=== PATIENT | female | born 1975 | race Two or more races ===

== ENCOUNTER 2017-11-05 08:23 | Inpatient (IN) | payer OTHER ==
[~2017-11-05] VITALS: Ht 172.7 cm; Wt 82.0 kg
[2017-11-05 08:51] VITALS: BP 117/67
[2017-11-05 09:56] LABS: SOURCE SWAB
[2017-11-05 10:09] LABS: BASOPHIL (%) 0.2 % (0-1); EOSINOPHIL (%) 0.2 % (0-5); HEMATOCRIT 35.5 % (36.0-46.0); HEMOGLOBIN 12.7 G/DL (11.9-15.5); IMMATURE GRANULOCYTE (%) 0.7 % (0.0-0.7); LYMPHOCYTE (%) 10.7 % (15-42); LYMPHOCYTE COUNT 1.9 K/uL (1.0-2.8); MCH 33.8 PG (29.0-34.0); MCHC 35.8 G/DL (30.0-36.0); MCV 94.4 FL (83-99); MONOCYTE (%) 4.1 % (3-12); MONOCYTE COUNT 0.7 K/uL (0-0.8); NEUTROPHIL (%) 84.1 % (45-76); NEUTROPHIL COUNT 14.7 K/uL (1.8-6.4); PLATELET COUNT 186 K/uL (156-360); RBC DIS.WIDTH-CV 13.3 % (11.8-14.6); RBC DIS.WIDTH-SD 45.8 % (39-53); RED BLOOD COUNT 3.76 M/uL (3.80-5.20); WHITE BLOOD COUNT 17.5 K/uL (4.1-10.2)
[2017-11-05] MEDS ORDERED: IBUPROFEN800 MG PO (13:05)
[2017-11-05] MEDS ORDERED: ENDOCET 5-3251 EACH PO (13:05)
[2017-11-05 14:15] VITALS: BP 135/72
[2017-11-05 20:11] VITALS: BP 117/69
[2017-11-05 23:33] VITALS: BP 93/53
[2017-11-06 03:13] VITALS: BP 111/65
[2017-11-06 07:08] LABS: BASOPHIL (%) 0.2 % (0-1); EOSINOPHIL (%) 0.6 % (0-5); EOSINOPHIL COUNT 0.1 K/uL (0-0.3); HEMATOCRIT 35.1 % (36.0-46.0); IMMATURE GRANULOCYTE (%) 0.9 % (0.0-0.7); LYMPHOCYTE (%) 13.4 % (15-42); LYMPHOCYTE COUNT 2.2 K/uL (1.0-2.8); MCH 33.1 PG (29.0-34.0); MCHC 34.2 G/DL (30.0-36.0); MCV 96.7 FL (83-99); MONOCYTE (%) 4.7 % (3-12); MONOCYTE COUNT 0.8 K/uL (0-0.8); NEUTROPHIL (%) 80.2 % (45-76); NEUTROPHIL COUNT 12.9 K/uL (1.8-6.4); PLATELET COUNT 176 K/uL (156-360); RBC DIS.WIDTH-CV 13.6 % (11.8-14.6); RBC DIS.WIDTH-SD 48.2 % (39-53); RED BLOOD COUNT 3.63 M/uL (3.80-5.20); WHITE BLOOD COUNT 16.1 K/uL (4.1-10.2)
[2017-11-07 07:33] VITALS: BP 116/78
[2017-11-07] MEDS ORDERED: AZITHROMYCIN250 MG PO (10:17)
[2017-11-07 11:00] VITALS: BP 122/74
[2017-11-07 15:04] VITALS: BP 143/72
[2017-11-08 07:20] VITALS: BP 129/69
== END 2017-11-08 12:00 | disposition home or self-care (01) | DRG 766 ==
LOC: LDRP-OP 08:23 → 2WEST 08:24 → LDRP-OP 02-05 15:25
PROVIDERS: Obstetrics & Gynecology Gynecology
DX: O60.14X0 Preterm labor third trimester with preterm delivery third trimester, not applicable or unspecified (principal); O32.1XX0 Maternal care for breech presentation, not applicable or unspecified; Z3A.35 35 weeks gestation of pregnancy; O99.334 Smoking (tobacco) complicating childbirth; O42.913 Preterm premature rupture of membranes, unspecified as to length of time between rupture and onset of labor, third trimester; O99.284 Endocrine, nutritional and metabolic diseases complicating childbirth; E05.00 Thyrotoxicosis with diffuse goiter without thyrotoxic crisis or storm; Z37.0 Single live birth; Z30.2 Encounter for sterilization; O32.2XX0 Maternal care for transverse and oblique lie, not applicable or unspecified; R05 Cough; R09.82 Postnasal drip; F17.210 Nicotine dependence, cigarettes, uncomplicated; O75.89 Other specified complications of labor and delivery; L40.50 Arthropathic psoriasis, unspecified
CPT/HCPCS: 84443; 85025; 86850; 86870; 86900; 86901; 86920; 87077; 87081; 87186; 87491; 87591; 87653; 88302; 88307; J0690; J2274; J2405; J7120